=== PATIENT | female | born 1960 | race Caucasian/White ===

== ENCOUNTER 2016-09-27 19:44 | Emergency (ER) | payer BC ==
[~2016-09-27] VITALS: Ht 167.6 cm; Wt 88.2 kg
[~2016-09-27 19:44] MED LIST: INHALED STEROID; [UNRECOGNIZED DRUG - REMARK]
[2016-09-27 19:48] VITALS: BP 145/86; TEMP 99.4
[2016-09-27] MEDS ORDERED: FLEXERIL 1010 MG/TAB PO ×2 (22:18→22:38)
[2016-09-27] MEDS ORDERED: CORGARD80 MG PO (22:22)
[2016-09-27] MEDS ORDERED: DEPAKOTE ER 50500 MG PO (22:23)
[2016-09-27] MEDS ORDERED: ALIGN (22:23)
[2016-09-27] MEDS ORDERED: VITAMIN D 1001000 IU PO (22:24)
[2016-09-27] MEDS ORDERED: QVAR0.08 MG/AC IH (22:24)
[2016-09-27] MEDS ORDERED: VENTOLIN0.09 MG IH (22:25)
[2016-09-27 22:40] VITALS: PULSE 67
== END 2016-09-27 22:41 | disposition home or self-care (01) ==
LOC: COL.ER 19:44
DX: M62.831 Muscle spasm of calf (principal)
CPT/HCPCS: J2360

== ENCOUNTER → 2016-12-03 | Outpatient (CLI) | payer BC ==
[~2016-12-03] MED LIST changes: +ALIGN; +CORGARD80 MG PO; +DEPAKOTE ER 50500 MG PO; +FLEXERIL 1010 MG/TAB PO; +QVAR0.08 MG/AC IH; +VENTOLIN0.09 MG IH; +VITAMIN D 1001000 IU PO
== END ==
LOC: MC.RAD 11:40
DX: Z12.31 Encounter for screening mammogram for malignant neoplasm of breast (principal)

== ENCOUNTER → 2017-11-19 | Outpatient (CLI) | payer BC | LOC: COL.LAB 13:44 | DX: K58.9 Irritable bowel syndrome, unspecified (principal) ==

== ENCOUNTER → 2017-12-11 | Outpatient (CLI) | payer BC | LOC: MC.RAD 06:56 | DX: Z12.31 Encounter for screening mammogram for malignant neoplasm of breast (principal) ==

== ENCOUNTER → 2018-07-24 | Outpatient (CLI) | payer BC | LOC: MC.RAD 12:40 | DX: R22.32 Localized swelling, mass and lump, left upper limb (principal) ==

== ENCOUNTER → 2018-09-11 | Outpatient (CLI) | payer BC | LOC: COL.RAD 14:24 | DX: M79.89 Other specified soft tissue disorders (principal) | CPT/HCPCS: Q9967 ==